=== PATIENT | male | born 1965 | race Caucasian/White ===

== ENCOUNTER 2022-08-01 16:48 | Inpatient (IN) | payer OTHER, MEDICAID ==
[~2022-08-01] VITALS: Ht 182.9 cm; Wt 91.6 kg
[~2022-08-01 16:48] MED LIST: ALLO300T2 PO; CALC667T6 PO; DOCU-144 PO; FER300L PO; FOLI-43 PO; FOLI0.8T42 PO; HYDR-3698 PO; LOSA25TA18 PO; METO-442 PO; NEU300 PO; NOR10 PO
--- NOTE | 2022-08-01 16:48 | NUR ---
BROUGHT IN BY S[facility] [address] AND PLACED IN BED #8, TRIAGED. REPORT GIVEN TO PRIMO
[2022-08-01 16:50] VITALS: BP_SYST 146
--- NOTE | 2022-08-01 17:00 | NUR ---
Pt bib ambulance from home. CC chest pain. Pt notes SOB denies cough. difficulty breathing on oxygen 2 liters Nasal canula. PT below the knee bilateral amputation. Hx of diabetes, aaox4 denies headache, denies NV.
--- NOTE | 2022-08-01 17:15 | NUR ---
ER at bedside examining patient.
[2022-08-01] MEDS ORDERED: LIP40 PO (17:39)
[2022-08-01] MEDS ORDERED: APIX5TAB4 PO (17:39)
[2022-08-01] MEDS ORDERED: FURO-149 PO (17:39)
[2022-08-01] MEDS ORDERED: ASPIRIN 325 MG TABLET PO ONE (17:45)
[2022-08-01] MEDS ORDERED: NITROGLYCERIN 1 INCH (GM) OINT. TP ONE (17:45)
[2022-08-01 18:08] LABS: BASOPHILS # (AUTO) 0.1 K/uL (0.0-0.2); BASOPHILS % (AUTO) 1.5 % (0.0-2.0); EOSINOPHILS # (AUTO) 0.2 K/uL (0.0-0.4); HEMATOCRIT 22.8 % (36-54); HEMOGLOBIN 7.4 g/dL (14.0-18.0); LYMPHOCYTES # (AUTO) 0.5 K/uL (1.0-5.5); LYMPHOCYTES % (AUTO) 5.3 % (20.5-51.5); MEAN CORPUSCULAR HEMOGLOBIN 26 pg (27-31); MEAN CORPUSCULAR HGB CONC 33 % (32-36); MEAN CORPUSCULAR VOLUME 80 fL (79.0-98.0); MONOCYTES # (AUTO) 0.6 K/uL (0.0-1.0); MONOCYTES % (AUTO) 6.3 % (1.7-9.3); NEUTROPHILS # (AUTO) 8.7 K/uL (1.8-7.7); NEUTROPHILS % (AUTO) 84.9 % (40.0-70.0); PLATELET COUNT (AUTO) 236 K/uL (130-430); RED BLOOD CELL COUNT(AUTO) 2.83 MIL/uL (4.2-6.2); RED CELL DISTRIBUTION WIDTH 18.1 % (9.0-15.0); WHITE BLOOD COUNT (AUTO) 10.3 K/uL (4.8-10.8)
[2022-08-01] MEDS ORDERED: VANCOMYCIN HCL 1,000 MG in NS 250 ML IV ONE (19:00)
[2022-08-01] MEDS ORDERED: AZITHROMYCIN 500 MG in NS 250 ML IV ONE (19:00)
--- NOTE | 2022-08-01 19:45 | NUR ---
Patient resting comfortably in bed with side rails raised. Patient A/Ox4, VSS, resp even and unlabored. NAD Noted at this time.
--- NOTE | 2022-08-01 19:45 | NUR ---
Received report from MIRNA Flowers; assuming care of patient at this time.
--- NOTE | 2022-08-01 19:50 | NUR ---
# 20 gauge angiocath placed to right AC. Use of asceptic technique. Opsite placed over site. Blood return noted. Flushed with 10 cc of normal saline. No evidence of infiltration noted. Patient tolerated well.
[2022-08-01] MEDS ORDERED: VANCOMYCIN HCL 1000 MG/VIAL IV ONE (20:22)
[2022-08-01] MEDS ORDERED: AZITHROMYCIN 500 MG/VIAL (ZITHROMAX) IV ONE (20:23)
--- NOTE | 2022-08-01 21:35 | NUR ---
COVID 19 ANTIGEN SWAB SENT TO LAB.
[2022-08-01 21:56] LABS: UREA NITROGEN, BLOOD 66 mg/dL (8-21)
[2022-08-01 22:03] LABS: GFR AFRICAN AMERICAN 9 mL/min (>90)
--- NOTE | 2022-08-01 22:08 | NUR ---
Critical lab received from lab by MANDO Woo. Received cribital lab value from MANDO Woo for Troponin 3148. ER MD Lan notified; no new orders given. Patient is pending admission to floor at this time.
[2022-08-01 23:09] LABS: ANION GAP 16 (5-15); CHLORIDE 101 mmol/L (98-107); POTASSIUM 5.1 mmol/L (3.5-5.1)
[2022-08-01 23:10] LABS: ALANINE AMINOTRANSFERASE 46 U/L (12-78); ASPARTATE AMINOTRANSFERASE 24 U/L (10-37); CALCIUM 8.7 mg/dL (8.4-11.0); GLUCOSE 123 mg/dL (70-99); TOTAL BILIRUBIN 0.3 mg/dL (0.0-1.0)
[2022-08-01 23:11] LABS: ALBUMIN 2.8 g/dL (3.4-4.8)
[2022-08-01] MEDS ORDERED: ONDANSETRON HCL 4 MG/2 ML VIAL IVP PRN (23:15)
[2022-08-01] MEDS ORDERED: ACETAMINOPHEN 325 MG TABLET PO PRN (23:15)
--- NOTE | 2022-08-01 23:15 | NUR ---
Admit bed requested Patient will be admitted to care of Dr. MA. Admitted to TELE unit. Diagnosis RESPIRATORY FAILURE Inpatient (Yes or No) YES Observation (Yes or No) NO Orientation concerns or request close to nursing station (Yes or No) NO Covid Status NEGATIVE On vent or bipap NO Isolation requirements NO Needs a sitter NO From Home (Yes or if No enter name of facility) YES Requires Dialysis (Yes or No) YES Med Rec Completed (Yes of No) YES
--- NOTE | 2022-08-01 23:55 | NUR ---
Wound swab and culture sent to lab.
--- NOTE | 2022-08-02 | NUR ---
Patient sleeping in bed with side rails raised. Nad noted at this time.
[2022-08-02] MEDS ORDERED: PIPERACILLIN/TAZO 3.375 GM in NS 50 ML IV SCH (01:00)
[2022-08-02] MEDS ORDERED: cefTRIAXone 1 GM in D5W 50 ML IV ONE (01:00)
[2022-08-02] MEDS ORDERED: PIPERACILLIN/TAZOBACTAM 3.375 GM/VIAL (ZOSYN) IV ONE (01:52)
--- NOTE | 2022-08-02 02:00 | NUR ---
Patient resting comfortably in bed with side rails raised. Nad noted at this time.
--- NOTE | 2022-08-02 07:39 | NUR ---
Report given to MANDO Michel who is assuming care of patient at this time.
--- NOTE | 2022-08-02 08:00 | NUR ---
ON DUTY RECEIVED THIS PT. A/OX4, WITH SOB. PT WAS ADMITED TO TELE, WAITING FOR BED. BREAKFAST OFFERED TO PT. PT EATING WELL. PT IS FEELING OF SOB. REQUESTING HD. DR. RAJPUT WAS CALLED BY [facility] FOR ORDER OF HD TODAY.
--- NOTE | 2022-08-02 08:05 | NUR ---
DR. ALSTON, COVERING DR. RAJPUT, CALLED BACK. INFO UNDATED TO HIM. DR. ALSTON WILL ORDER HD AND PUT INTO COMPUTER.
--- NOTE | 2022-08-02 08:25 | NUR ---
food tray provided to patient with dietary restriction in place per order
[2022-08-02] MEDS: HYDROcodone/ACETAMIN 5-325 MG TAB (NORCO/ VICODIN) PO PRN ×2 (08:31→21:09)
--- NOTE | 2022-08-02 08:33 | NUR ---
CO PAIN COMES BACK FOR CHEST. NORCO 5/325MG GIVEN PO.
--- NOTE | 2022-08-02 09:21 | NUR ---
PT GOT ROOM IN TELE 130TA. PT WAS SENT TO TELE WITH EMT LG. REPORT ENDORSED BEDSIDE TO ROBER GILMORE.
[2022-08-02 09:30] VITALS: BP_SYST 146
--- NOTE | 2022-08-02 09:35 | NUR ---
AT BEDSIDE TO ASSESS PT. RECEIVED PT FROM JHONNY GILMORE. ASSUMED CARE. PT AA0X4. RESP SHALLOW, LUNG SOUNDS DIMINISHED. ON N/C AT 4LPM. O2 SAT 99%. SOB NOTED. TELEMONITOR PLACED PT HR 115, STATES PT IN INTERMITTENT AFIB. IV CATH TO LAC FLUSHED AND PATENT. PT ABDOMEN DISTENDED, NONTENDER. PT ANURIC. DENIES PAIN. DR. HERRING STATES PT'S ELIQUIS WILL BE HELD.
--- NOTE | 2022-08-02 09:36 | NUR ---
CONSULTATION PAGED/CALLED Reason for Consultation: [] INFECTED WOUND Person Who was Notified: [] KURT Consulting Physician: [] DR GALLEGO Insight Director Specialty: [] ID Ordering Physician: [] DR TOMPKINS
--- NOTE | 2022-08-02 09:37 | NUR ---
CONSULTATION PAGED/CALLED Reason for Consultation: [] ESRD, HD MGMT Person Who was Notified: [] ERIC Consulting Physician: [] DR RAJPUT Data Governance Consultant Specialty: [] NEPHRO Ordering Physician: [] DR TOMPKINS
--- NOTE | 2022-08-02 09:40 | NUR ---
NOTES: Dr. Sherman here and informed about the consult and said he saw the pt. already.
--- NOTE | 2022-08-02 09:42 | NUR ---
CONSULTATION PAGED/CALLED Reason for Consultation: [] CHF Person Who was Notified: [] Claude HERRING Consulting Physician: [] DR HERRING Carpet Binder Specialty: [] CARDIO Ordering Physician: [] DR TOMPKINS
--- NOTE | 2022-08-02 09:44 | NUR ---
CONSULTATION PAGED/CALLED Reason for Consultation: [] PLEURAL EFFUSION Person Who was Notified: [] PATRICK Consulting Physician: [] DR Steve AGUILA Examining Officer Specialty: [] PULMO Ordering Physician: [] DR TOMPKINS
--- NOTE | 2022-08-02 10:00 | NUR ---
NOTES: Dr. Jackson called, unable to get hold of primary RN, informed about the consult,will come by later.engine monitor Isabel already called for the remaining consults, nurse Keiko need to call Dr. Carrizales and told her ,MD was just called.
--- NOTE | 2022-08-02 10:06 | NUR ---
DR. HERRING MADE AWARE PT IS DIAPHORETIC, HR 115, RR 28, O2 SAT 98% ON 4L N/C, PT DESATURATES TO 85% WHEN SPEAKING. DR. RAJPUT PAGED A SECOND TIME TO EXPEDITE HEMODIALYSIS ORDER.
--- NOTE | 2022-08-02 10:17 | NUR ---
REPORTED TO DR. RAJPUT PT'S SOB, DIAPHORETIC, C/O C/P. HE STATED ORDER HD STAT. HD ORDER GIVEN TO GABRIELLE, HE STATED HE WILL MAKE HD AWARE.
[2022-08-02 12:03] VITALS: BP_SYST 146
--- NOTE | 2022-08-02 12:20 | NUR ---
PT RECEIVING HEMODIALYSIS. DR. RAJPUT AT BEDSIDE TO ASSESS PT.
[2022-08-02] MEDS: CEFEPIME 2 GM in D5W 100 ML IV SCH (12:41)
[2022-08-02] MEDS: CALCIUM ACETATE 667 MG CAP PO SCH ×2 (12:42→17:53)
[2022-08-02] MEDS: FERROUS SULFATE 325 MG TABLET.DR PO SCH ×2 (12:42→16:55)
[2022-08-02 12:45] VITALS: BP_SYST 111
--- NOTE | 2022-08-02 15:00 | NUR ---
HD COMPLETED 3000L OUT.
--- NOTE | 2022-08-02 15:17 | NUR ---
U/S CHEST COMPLETED. U/S TECH SPOKE TO DR. BARGER WHO STATED PT WILL HAVE THORCENTESIS ON FRIDAY. MANDO MEDINACONTRIBUTION SOLICITOR MADE AWARE.
--- NOTE | 2022-08-02 15:19 | NUR ---
WOUND CARE PREFORMED AND PICTURES TAKEN FOR CHART. RLE SCATTERED SCABS CLEANSED WITH NS, PATTED DRY AND OPTIFOAM PLACED. LLE MEDIAL WOUND CLEANSED WITH NS, PATTED DRY AND OPTIFOAM PLACED. RLE LATERAL WOUND CLEANSED WITH NS, PATTED DRY AND COVERED WITH ALGINATE AND OPTIFOAM.
[2022-08-02 15:40] VITALS: BP_SYST 144
[2022-08-02] MEDS ORDERED: VANCOMYCIN HCL 500 MG in NS 100 ML IV ONE (16:00)
--- NOTE | 2022-08-02 18:37 | NUR ---
CHRISTINA, AND INFLUENZA A&B OBTAINED AND TAKEN TO LAB.
--- NOTE | 2022-08-02 19:14 | NUR ---
ENDORSED ALL CARE TO MANDO RODRIGUEZ. ALL QUESTIONS AND CONCERNS ADDRESSED.
[2022-08-02 20:00] VITALS: BP_SYST 143
--- NOTE | 2022-08-02 20:07 | NUR ---
RECEIVED PATIENT IN BED, A/O X4 , NO DISTRESS NOTED, O2 SAT 98% IN ROOM AIR, LEFT CHEST PERM CATH FOR HD ACCESS, STEPHEN LEG AMPUTATION SITE INFECTION WITH DRESSING ON AND INTACT, NO C/O PAIN AT THIS TIME, CALL LIGHT WITHIN REACH, WILL CONTINUE TO MONITOR.
[2022-08-02] MEDS: GABAPENTIN 300 MG CAPSULE PO SCH (21:08)
[2022-08-02] MEDS: LOSARTAN POTASSIUM 25 MG TABLET PO SCH (21:08)
[2022-08-02] MEDS: ALLOPURINOL 300 MG TABLET (ZYLOPRIM) PO SCH (21:08)
[2022-08-02] MEDS: DOCUSATE SODIUM 100 MG CAPSULE PO SCH (21:09)
[2022-08-03 03:31] VITALS: BP_SYST 110
--- NOTE | 2022-08-03 04:33 | NUR ---
SLEEPING AT THIS TIME, NO DISTRESS NOTED.
--- NOTE | 2022-08-03 06:13 | NUR ---
C/O BACK PAIN 04/28, NORCO 1 TAB PO GIVEN ORDERED.
--- NOTE | 2022-08-03 07:08 | NUR ---
receive the patient form the nighty rn in a stable condition with admitting diagnosis of pneumonia pleural effusion ESRD . no sign and symptoms of respiratory distress . no complain of pain . will continue to monitor .
[2022-08-03 08:00] VITALS: BP_SYST 104
--- NOTE | 2022-08-03 08:10 | NUR ---
the hyperbaric technician was not able to get some blood sample for laboratory today , will endorse to next shift
[2022-08-03] MEDS: DOCUSATE SODIUM 100 MG CAPSULE PO SCH ×2 (09:01→20:24)
[2022-08-03] MEDS: CALCIUM ACETATE 667 MG CAP PO SCH ×3 (09:01→18:04)
[2022-08-03] MEDS: LOSARTAN POTASSIUM 25 MG TABLET PO SCH ×2 (09:02→20:24)
[2022-08-03] MEDS: FOLIC ACID 1 MG TABLET PO SCH (09:02)
[2022-08-03] MEDS: METOPROLOL TARTRATE 50 MG TABLET PO SCH (09:02)
[2022-08-03] MEDS: FERROUS SULFATE 325 MG TABLET.DR PO SCH ×3 (09:02→18:04)
[2022-08-03] MEDS: amLODIPine BESYLATE 10 MG TABLET PO SCH (09:03)
[2022-08-03] MEDS: ATORVASTATIN 20 MG TABLET PO SCH (09:03)
[2022-08-03] MEDS: NEPHROVITE, (FOLIC ACID/VITAMIN B COMP W-C 1 TAB) PO SCH (09:03)
[2022-08-03] MEDS: CEFEPIME 2 GM in D5W 100 ML IV SCH (12:10)
--- NOTE | 2022-08-03 13:44 | NUR ---
patient requested for a change of linen for comfort .
[2022-08-03 13:48] VITALS: BP_SYST 95
--- NOTE | 2022-08-03 15:39 | NUR ---
repeat mrsa sample was done . upon the request of the laboratory
[2022-08-03 16:00] VITALS: BP_SYST 92
--- NOTE | 2022-08-03 16:45 | NUR ---
jena complained of stomach heart burn d o
--- NOTE | 2022-08-03 16:45 | NUR ---
the rn called md landaverde for orders for stomach heart burn . still awaiting for a return call
--- NOTE | 2022-08-03 17:12 | NUR ---
the next available guest services lead was also not able get some blood specimen for the laboratory
--- NOTE | 2022-08-03 18:16 | NUR ---
will endorse to shift foreman rn for continuity of care
[2022-08-03 20:21] VITALS: BP_SYST 116
[2022-08-03] MEDS: GABAPENTIN 300 MG CAPSULE PO SCH (20:23)
[2022-08-03] MEDS: HYDROcodone/ACETAMIN 5-325 MG TAB (NORCO/ VICODIN) PO PRN (20:24)
[2022-08-03] MEDS: ALLOPURINOL 300 MG TABLET (ZYLOPRIM) PO SCH (20:25)
[2022-08-04 00:48] VITALS: BP_SYST 105
[2022-08-04 07:00] VITALS: BP_SYST 112
--- NOTE | 2022-08-04 07:00 | NUR ---
receive the patient from the professor of mechanical engineering rn in a stable condition with admitting diagnosis of pneumonia . axo4 . no sign and symptoms of respiratory distress . no complain of pain at this time . will continue to monitor
[2022-08-04] MEDS: CALCIUM ACETATE 667 MG CAP PO SCH ×3 (08:34→17:18)
[2022-08-04] MEDS: DOCUSATE SODIUM 100 MG CAPSULE PO SCH ×2 (08:35→21:15)
[2022-08-04] MEDS: FERROUS SULFATE 325 MG TABLET.DR PO SCH ×3 (08:35→17:18)
[2022-08-04] MEDS: LOSARTAN POTASSIUM 25 MG TABLET PO SCH ×2 (08:35→21:09)
[2022-08-04] MEDS: FOLIC ACID 1 MG TABLET PO SCH (08:36)
[2022-08-04] MEDS: ATORVASTATIN 20 MG TABLET PO SCH (08:36)
[2022-08-04] MEDS: METOPROLOL TARTRATE 50 MG TABLET PO SCH (08:37)
[2022-08-04] MEDS: NEPHROVITE, (FOLIC ACID/VITAMIN B COMP W-C 1 TAB) PO SCH (08:37)
[2022-08-04] MEDS: amLODIPine BESYLATE 10 MG TABLET PO SCH (08:40)
[2022-08-04] MEDS: HYDROcodone/ACETAMIN 5-325 MG TAB (NORCO/ VICODIN) PO PRN ×2 (09:16→21:08)
--- NOTE | 2022-08-04 10:29 | NUR ---
md akhil pride also order wound consult for left stump of the patient . the rn also regulargy change foam dressing of the patient
[2022-08-04] MEDS: HEPARIN SODIUM,PORCINE 5,000 UNITS/ML VIAL SUBCUT SCH ×2 (13:45→21:15)
--- NOTE | 2022-08-04 14:24 | NUR ---
radiology dept called to obtain consent for thoracentesis and chest xray after the procedure .
--- NOTE | 2022-08-04 15:15 | NUR ---
acquired consent for thoracentesis from the patient tomorrow
--- NOTE | 2022-08-04 16:53 | NUR ---
patient started on hemodialysis . bp was low . albumin was infuse . lab were able to draw blood . pt will have hd tomorrow due for discharge.
[2022-08-04] MEDS ORDERED: ALBUMIN HUMAN 25% 200 ML IV ONE ×2 (17:45)
[2022-08-04 18:06] LABS: BASOPHILS # (AUTO) 0.1 K/uL (0.0-0.2); BASOPHILS % (AUTO) 1.1 % (0.0-2.0); EOSINOPHILS # (AUTO) 0.3 K/uL (0.0-0.4); EOSINOPHILS % (AUTO) 2.2 % (0.0-4.0); HEMATOCRIT 22.3 % (36-54); LYMPHOCYTES # (AUTO) 0.6 K/uL (1.0-5.5); LYMPHOCYTES % (AUTO) 4.7 % (20.5-51.5); MEAN CORPUSCULAR HEMOGLOBIN 26 pg (27-31); MEAN CORPUSCULAR HGB CONC 32 % (32-36); MEAN CORPUSCULAR VOLUME 81 fL (79.0-98.0); MONOCYTES # (AUTO) 0.7 K/uL (0.0-1.0); MONOCYTES % (AUTO) 5.7 % (1.7-9.3); NEUTROPHILS # (AUTO) 10.2 K/uL (1.8-7.7); NEUTROPHILS % (AUTO) 86.3 % (40.0-70.0); PLATELET COUNT (AUTO) 281 K/uL (130-430); RED BLOOD CELL COUNT(AUTO) 2.76 MIL/uL (4.2-6.2); RED CELL DISTRIBUTION WIDTH 17.7 % (9.0-15.0); WHITE BLOOD COUNT (AUTO) 11.8 K/uL (4.8-10.8)
[2022-08-04 18:14] LABS: INR 1.1 (0.80-1.20); PROTHROMBIN TIME 11.1 SECS (9.5-12.5)
[2022-08-04 18:24] LABS: ALBUMIN 2.6 g/dL (3.4-4.8); CALCIUM 8.3 mg/dL (8.4-11.0); POTASSIUM 5.2 mmol/L (3.5-5.1); TOTAL BILIRUBIN 0.3 mg/dL (0.0-1.0); VANCOMYCIN,RANDOM 11.4 ug/mL
[2022-08-04 18:28] LABS: CREATININE 7.83 mg/dL (0.55-1.30)
[2022-08-04] MEDS ORDERED: HEPARIN SODIUM,PORCINE 5,000 UNITS/ML VIAL SUBCUT ONE (18:30)
--- NOTE | 2022-08-04 18:59 | NUR ---
will endorse to night rn for continuity of care
[2022-08-04 19:52] VITALS: BP_SYST 105
--- NOTE | 2022-08-04 20:10 | NUR ---
received patient in bed with o2 2 liter via n/c, o2 sat 95% , patient is a/o x4 , no distress noted, patient is on dialysis with access at left chest permacath, both leg amputation with stump infection , dressing intact, no c/o pain at this time, call light within reach.
[2022-08-04] MEDS: GABAPENTIN 300 MG CAPSULE PO SCH (21:08)
[2022-08-04] MEDS: ALLOPURINOL 300 MG TABLET (ZYLOPRIM) PO SCH (21:08)
[2022-08-05] VITALS: BP_SYST 118; BP_SYST 129
--- NOTE | 2022-08-05 | NUR ---
hgb 7 , 1 unit of pack cell ordered , consent signed by patient, type and cross drawed by lab, WILL transfusion once the PRBC available.
[2022-08-05] MEDS: HEPARIN SODIUM,PORCINE 5,000 UNITS/ML VIAL SUBCUT SCH ×2 (06:29→14:58)
--- NOTE | 2022-08-05 07:10 | NUR ---
receive the patient from the night custodian rn for thoracentesis and hemodialysis today with one unit of PRBC aox 4 . no complain of pain at this time . no sign and symptoms of respiratory distress . will continue to monitor
[2022-08-05 07:21] LABS: EOSINOPHILS # (AUTO) 0.3 K/uL (0.0-0.4); EOSINOPHILS % (AUTO) 2.8 % (0.0-4.0); HEMATOCRIT 22.7 % (36-54); HEMOGLOBIN 7.2 g/dL (14.0-18.0); LYMPHOCYTES # (AUTO) 0.6 K/uL (1.0-5.5); LYMPHOCYTES % (AUTO) 6.1 % (20.5-51.5); MEAN CORPUSCULAR HEMOGLOBIN 26 pg (27-31); MEAN CORPUSCULAR HGB CONC 32 % (32-36); MEAN CORPUSCULAR VOLUME 82 fL (79.0-98.0); MONOCYTES # (AUTO) 0.9 K/uL (0.0-1.0); MONOCYTES % (AUTO) 8.8 % (1.7-9.3); PLATELET COUNT (AUTO) 255 K/uL (130-430); RED BLOOD CELL COUNT(AUTO) 2.77 MIL/uL (4.2-6.2); RED CELL DISTRIBUTION WIDTH 17.6 % (9.0-15.0); WHITE BLOOD COUNT (AUTO) 9.8 K/uL (4.8-10.8)
[2022-08-05 08:00] VITALS: BP_SYST 108
[2022-08-05 08:02] LABS: ALBUMIN 2.8 g/dL (3.4-4.8); CALCIUM 8.4 mg/dL (8.4-11.0); TOTAL BILIRUBIN 0.3 mg/dL (0.0-1.0)
[2022-08-05 08:14] LABS: BASOPHILS % (AUTO) 0.7 % (0.0-2.0); NEUTROPHILS % (AUTO) 81.6 % (40.0-70.0)
[2022-08-05 08:15] LABS: BASOPHILS # (AUTO) 0.1 K/uL (0.0-0.2)
--- NOTE | 2022-08-05 08:30 | NUR ---
the md and chief radiology did the thoracentesis use lidocaine on the operative site . at 0930 ended the procedure . took out 2 liters of fluid . tolerated the procedure . no adverse reaction on the procedure
[2022-08-05] MEDS: ATORVASTATIN 20 MG TABLET PO SCH (08:40)
[2022-08-05] MEDS: NEPHROVITE, (FOLIC ACID/VITAMIN B COMP W-C 1 TAB) PO SCH (08:40)
[2022-08-05] MEDS: CALCIUM ACETATE 667 MG CAP PO SCH ×3 (08:40→16:33)
[2022-08-05] MEDS: FOLIC ACID 1 MG TABLET PO SCH (08:40)
[2022-08-05] MEDS: FERROUS SULFATE 325 MG TABLET.DR PO SCH ×3 (08:40→16:33)
[2022-08-05] MEDS: HYDROcodone/ACETAMIN 5-325 MG TAB (NORCO/ VICODIN) PO PRN (08:41)
[2022-08-05] MEDS: DOCUSATE SODIUM 100 MG CAPSULE PO SCH (08:43)
[2022-08-05 09:06] LABS: CREATININE 8.29 mg/dL (0.55-1.30); POTASSIUM 5.9 mmol/L (3.5-5.1)
[2022-08-05] MEDS ORDERED: CEFEPIME 2 GM in D5W 100 ML IV SCH (11:00)
--- NOTE | 2022-08-05 11:00 | NUR ---
chest xray was done post thoracentesis . tolerated the procedure
--- NOTE | 2022-08-05 11:14 | NUR ---
informed md corral k of 5.9 creatinine . patient is scheduled for hemodialysis . no new order
[2022-08-05 11:38] VITALS: BP_SYST 116
[2022-08-05] MEDS ORDERED: VANCOMYCIN HCL 1,000 MG in NS 250 ML IV ONE (12:00)
--- NOTE | 2022-08-05 13:30 | NUR ---
patient started on hemodialysis , one unit PRBC was given during the procedure .
--- NOTE | 2022-08-05 14:00 | NUR ---
WOUND EVALUATION: Wound Consult received from Dr. Stubbs. Thank you, Dr. Stubbs, for the consult. Patient received in a Migdalia Bed with an IsoFlex FAY mattress, awake, alert and oriented. Patient is able to turn independently. Tyrell Score is an 18. 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 Recent Labs: WBC 9.8, RBC 2.77, hemoglobin 7.2, hematocrit 22.7, ESR 77, potassium 5.9, BUN 69, creatinine 8.29, GFR 7, glucose 151, alkaline phosphatase 44, albumin 2.8, D-dimer 3800. Microbiology: MRSA Screen results in progress. Blood culture results x 2 in progress. Intrinsic factors that delay wound healing: Diabetes Mellitus, Peripheral Vascular Disease, Peripheral Arterial Disease, Dilated Cardiomyopathy, CHF, Systolic Heart Failure, bilateral knee amputations, recent pleural effusions, ESRD, on hemodialysis, left knee area amputation site infection, Hypoalbuminemia. Extrinsic factors that delay wound healing: Decreased mobility. Wound Assessment: 1. Left Lateral Posterior Residual Limb: Acute on chronic wound over old AKA incision, present on admission. Wound bed has 90% yellow slough, 10% dull red tissue. No odor, scant yellow drainage. Undermining present from 7-8 o'clock measuring 0.6 cm. Wound measures 2.2 cm x 4.0 cm x 0.4. Recommend: Cleanse wound with normal saline. Apply moisture barrier cream to isabel-wound. Apply Hydrogel to wound bed. Cover with foam dressing. Perform wound care daily, and as needed for dressing soiling or dislodgement. 2. Left Medial Posterior Residual Limb: Chronic wound, present on admission. Wound bed has 100% yellow eschar. No odor, no drainage. Dry, stable. Wound measures 1.3 cm x 0.4 cm. Recommend: [place] site with Betadine. Allow Betadine to air dry. Cover site with foam dressing. Perform wound care daily, and as needed for dressing soiling or dislodgment. 3. Right Anterior Residual Limb: Chronic wound, present on admission. 100% black eschar. No odor, no drainage. Periwound intact. Wound measures 1.0 cm x 0.5 cm. 4. Right Lateral Anterior Residual Limb: Chronic wound, present on admission. 100% black eschar. No odor, no drainage. Periwound intact. Wound measures 0.7 cm x 0.9 cm. Recommend: [place] sites with Betadine. Allow Betadine to air dry. Cover sites with foam dressings. Perform site care daily, and as needed for dressing soiling or dislodgment. Also recommend: Encourage and assist patient as needed with repositioning every 2 hours with pillow support and off-load pressure areas with pillows for pressure re-distribution. Offload, elevate and float bilateral heels with pillows. Perform skin care and monitor skin integrity Q shift.
[2022-08-05] MEDS: amLODIPine BESYLATE 10 MG TABLET PO SCH (16:29)
[2022-08-05] MEDS: LOSARTAN POTASSIUM 25 MG TABLET PO SCH (16:30)
[2022-08-05] MEDS: METOPROLOL TARTRATE 50 MG TABLET PO SCH (16:30)
--- NOTE | 2022-08-05 16:34 | NUR ---
gave all morning blood pressure medications after the hemodialysis
[2022-08-05 17:07] VITALS: BP_SYST 147
--- NOTE | 2022-08-05 18:06 | NUR ---
the patient was coal picker by the and daughter leave against medical advice after the thoracentesis 2L out this am .hemodialysis 1.2 L out . vitals bp 132/58 hr98 temp 96.5 signed AMA . MD landaverde was informed about the incident
== END 2022-08-05 17:45 | disposition left against medical advice (07) | DRG 564 ==
LOC: SED 16:48 → STU 23:05
PROVIDERS: ADMIT Family Medicine; ATTEND Family Medicine
PROC: 5A1D70Z Performance of Urinary Filtration, Intermittent, Less than 6 Hours Per Day (ICD-10-PCS; 2022-08-02)
PROC: 5A1D70Z Performance of Urinary Filtration, Intermittent, Less than 6 Hours Per Day (ICD-10-PCS; 2022-08-03)
PROC: 5A1D70Z Performance of Urinary Filtration, Intermittent, Less than 6 Hours Per Day (ICD-10-PCS; 2022-08-04)
PROC: 0W993ZZ Drainage of Right Pleural Cavity, Percutaneous Approach (ICD-10-PCS; principal; 2022-08-05)
PROC: 30233N1 Transfusion of Nonautologous Red Blood Cells into Peripheral Vein, Percutaneous Approach (ICD-10-PCS; 2022-08-05)
DX: T87.44 Infection of amputation stump, left lower extremity (principal); I50.23 Acute on chronic systolic (congestive) heart failure; J96.01 Acute respiratory failure with hypoxia; J18.9 Pneumonia, unspecified organism; N18.6 End stage renal disease; I13.2 Hypertensive heart and chronic kidney disease with heart failure and with stage 5 chronic kidney disease, or end stage renal disease; I48.20 Chronic atrial fibrillation, unspecified; L03.116 Cellulitis of left lower limb; I42.0 Dilated cardiomyopathy; E87.70 Fluid overload, unspecified; Z91.041 Radiographic dye allergy status; G89.4 Chronic pain syndrome; Y83.5 Amputation of limb(s) as the cause of abnormal reaction of the patient, or of later complication, without mention of misadventure at the time of the procedure; E11.51 Type 2 diabetes mellitus with diabetic peripheral angiopathy without gangrene; E78.00 Pure hypercholesterolemia, unspecified; E66.01 Morbid (severe) obesity due to excess calories; E11.22 Type 2 diabetes mellitus with diabetic chronic kidney disease; D64.9 Anemia, unspecified; Z20.822 Contact with and (suspected) exposure to COVID-19; Y92.89 Other specified places as the place of occurrence of the external cause; Z99.2 Dependence on renal dialysis; Z89.512 Acquired absence of left leg below knee; Z89.511 Acquired absence of right leg below knee; Z87.891 Personal history of nicotine dependence; Z79.01 Long term (current) use of anticoagulants; Z79.899 Other long term (current) drug therapy; Z68.27 Body mass index [BMI] 27.0-27.9, adult
CPT/HCPCS: 32555; 36415; 71045; 76604; 80053; 80202; 82550; 83605; 83880; 84484; 85025; 85379; 85610-TC; 85651-TC; 85730-TC; 86140; 86738; 86886; 86900; 86901; 86920; 87040; 87081; 90935; 90937; 93005; 96365; 96366; 96367; 99285; G0378; J0456; J0692; J1644; J2543; J3370; J7050; J7060; P9021

== ENCOUNTER 2022-09-16 09:54 | Inpatient (IN) | payer OTHER, MEDICAID ==
[~2022-09-16] VITALS: Ht 188 cm; Wt 87.1 kg
[~2022-09-16 09:54] MED LIST changes: +APIX5TAB4 PO; +FURO-149 PO; +LIP40 PO
[2022-09-16 10:00] VITALS: BP_SYST 136
[2022-09-16 15:21] LABS: EOSINOPHILS # (AUTO) 0.2 K/uL (0.0-0.4); HEMOGLOBIN 7.7 g/dL (14.0-18.0); NEUTROPHILS # (AUTO) 7.6 K/uL (1.8-7.7)
[2022-09-16 15:33] LABS: BASOPHILS # (AUTO) 0.1 K/uL (0.0-0.2); BASOPHILS % (AUTO) 1.2 % (0.0-2.0); EOSINOPHILS % (AUTO) 1.7 % (0.0-4.0); HEMATOCRIT 24.4 % (36-54); LYMPHOCYTES # (AUTO) 0.4 K/uL (1.0-5.5); LYMPHOCYTES % (AUTO) 4.8 % (20.5-51.5); MEAN CORPUSCULAR HEMOGLOBIN 24 pg (27-31); MEAN CORPUSCULAR HGB CONC 32 % (32-36); MEAN CORPUSCULAR VOLUME 77 fL (79.0-98.0); MONOCYTES # (AUTO) 0.6 K/uL (0.0-1.0); MONOCYTES % (AUTO) 7.2 % (1.7-9.3); NEUTROPHILS % (AUTO) 85.1 % (40.0-70.0); PLATELET COUNT (AUTO) 307 K/uL (130-430); RED BLOOD CELL COUNT(AUTO) 3.17 MIL/uL (4.2-6.2); RED CELL DISTRIBUTION WIDTH 17.7 % (9.0-15.0); WHITE BLOOD COUNT (AUTO) 8.9 K/uL (4.8-10.8)
[2022-09-16 15:40] LABS: ANION GAP 10 (5-15); CALCIUM 8.7 mg/dL (8.4-11.0); CHLORIDE 102 mmol/L (98-107); GLUCOSE 87 mg/dL (70-99); UREA NITROGEN, BLOOD 70 mg/dL (8-21)
[2022-09-16 15:49] LABS: ALANINE AMINOTRANSFERASE 19 U/L (12-78); ALBUMIN 3.3 g/dL (3.4-4.8); ASPARTATE AMINOTRANSFERASE 15 U/L (10-37); TOTAL BILIRUBIN 0.3 mg/dL (0.0-1.0)
[2022-09-16 16:26] LABS: GFR AFRICAN AMERICAN 7 mL/min (>90)
[2022-09-16 16:30] LABS: CREATININE 9.47 mg/dL (0.55-1.30)
--- NOTE | 2022-09-16 16:34 | NUR ---
COVID SAMPLE OBTIANED AND SENT TO LAB.
[2022-09-16] MEDS ORDERED: SODIUM ZIRCONIUM CYCLOSILICATE 10 GM POWD.PACK PO ONE (16:45)
[2022-09-16] MEDS ORDERED: ALBMDI (16:50)
[2022-09-16] MEDS ORDERED: HYDR-500 PO (16:50)
[2022-09-16] MEDS ORDERED: AURYXIA PO (16:50)
[2022-09-16] MEDS ORDERED: NOR10 PO (16:50)
[2022-09-16] MEDS ORDERED: ALLO300T2 PO (16:50)
[2022-09-16] MEDS ORDERED: FERR-69 PO (16:50)
[2022-09-16] MEDS ORDERED: ICOS1CAP PO (16:50)
[2022-09-16] MEDS ORDERED: METO50TA7 PO (16:50)
--- NOTE | 2022-09-16 17:00 | NUR ---
PT BIB BLS, CC SOB, PT IS BKA, PT STATES DIALYSIS DUE TODAY. PT SATURATION 95% ON 2 LITER. PT IS SINUS TACHY.
--- NOTE | 2022-09-16 17:18 | NUR ---
Admit bed requested Patient will be admitted to care of . Admitted to TELEMETRY unit. Diagnosis RENAL FAILURE Inpatient (Yes or No) YES Observation (Yes or No) NO Orientation concerns or request close to nursing station (Yes or No) NO Covid Status NEGATIVE On vent or bipap NO Isolation requirements NONE Needs a sitter NO From Home (Yes or if No enter name of facility) YES Requires Dialysis (Yes or No) YES Med Rec Completed (Yes of No) YES
--- NOTE | 2022-09-16 17:25 | NUR ---
CRITICAL RESULTS: POTASSIUM 6.1, CREATININE 9.47, TROPONIN 142. NOTIFIED MD.
[2022-09-16] MEDS ORDERED: ONDANSETRON HCL 4 MG/2 ML VIAL IVP PRN (18:00)
[2022-09-16] MEDS ORDERED: POTASSIUM CHLORIDE 20 MEQ TAB.PRT.SR PO PRN (18:00)
[2022-09-16] MEDS ORDERED: MUPIROCIN 2% TOPICAL OINTMENT 22 GM NS PRN (18:00)
[2022-09-16] MEDS ORDERED: DOCUSATE SODIUM 100 MG CAPSULE PO PRN (18:00)
[2022-09-16] MEDS ORDERED: MORPHINE 2 MG/ML INJ. SYRINGE IVP PRN (18:00)
[2022-09-16] MEDS ORDERED: LORazepam 2 MG/ML VIAL IVP PRN (18:00)
[2022-09-16] MEDS ORDERED: MAGNESIUM SULFATE 50 ML IV PRN (18:00)
[2022-09-16] MEDS ORDERED: ALBUTEROL SULFATE 0.083% 2.5 MG/3 ML VIAL.NEB INH PRN (18:00)
[2022-09-16] MEDS ORDERED: ACETAMINOPHEN 325 MG TABLET PO PRN (18:00)
[2022-09-16 18:19] VITALS: BP_SYST 136
--- NOTE | 2022-09-16 19:17 | NUR ---
PT BIB BLS, CC SOB, PT IS BKA, PT STATES DIALYSIS DUE TODAY. PT SATURATION 95% ON 2 LITER. PT IS SINUS TACHY.
--- NOTE | 2022-09-16 19:17 | NUR ---
Note darellleon in EDM - 09/16/22 at 1919 by ASHUTOSHPR PT BIB BLS, CC SOB, PT IS BKA, PT STATES DIALYSIS DUE TODAY. PT SATURATION 95% ON 2 LITER. PT IS SINUS TACHY.
[2022-09-16] MEDS ORDERED: DOCUSATE SODIUM 100 MG CAPSULE PO SCH (21:00)
[2022-09-16] MEDS: AURYXIA 210 MG PO SCH (21:00)
[2022-09-16] MEDS: CALCIUM ACETATE 667 MG CAP PO SCH (21:00)
[2022-09-16] MEDS: GABAPENTIN 300 MG CAPSULE PO SCH (21:00)
[2022-09-16] MEDS: APIXABAN 2.5 MG TABLET PO SCH (21:00)
[2022-09-16] MEDS ORDERED: ALLOPURINOL 300 MG TABLET (ZYLOPRIM) PO SCH (21:00)
--- NOTE | 2022-09-16 21:00 | NUR ---
HEMODIALYSIS CONSENT SIGNED BY THE PT. HD AT BEDSIDE IN PROGRESS ORDERED BY DR. ALSTON, NEPHORLOGIST. VSS. SAFE & HAZARD FREE ENVIRONMENT PROVIDED.
--- NOTE | 2022-09-16 23:29 | NUR ---
HD 3300 OUT. VSS. BRADLEY PERMACATH DRESSED INTACT W/ NO S/S OF BLEEDING. PT TOLERATED HD.
--- NOTE | 2022-09-16 23:35 | NUR ---
# 20 gauge angiocath placed to R AC. Use of asceptic technique. Opsite placed over site. Blood return noted. Flushed with 10 cc of normal saline. No evidence of infiltration noted. Patient tolerated well.
--- NOTE | 2022-09-16 23:45 | NUR ---
Patient will be admitted to care of TELEMETRY. Admitted to TELE unit. Will go to room 109B. Belongings list completed. Complete and up to date summary report printed. SBAR report to be given TO MANDO HOPKINS at bedside with opportunity for questions.
[2022-09-16 23:50] VITALS: BP_SYST 145
--- NOTE | 2022-09-16 23:50 | NUR ---
ADMISSION NOTE Received patient from ER via gurney. Patient admitted with diagnosis of RENAL FAILURE. Patient is awake, alert, oriented X 4. Patient oriented to hospital room, call light, toileting, pain management and safety-teach back done. Patient informed that their room number is 109B. Personal belongings checked and Belongings List documented. Call light within reach.
[2022-09-17] MEDS: ZOLPIDEM TARTRATE 5 MG TABLET PO PRN ×2 (02:56→23:26)
[2022-09-17] MEDS: MORPHINE 2 MG/ML INJ. SYRINGE IVP PRN ×2 (02:59→23:25)
[2022-09-17 08:00] VITALS: BP_SYST 127
--- NOTE | 2022-09-17 08:10 | NUR ---
Received patient alert, awake and oriented. He complains of shortness of breath on exertion. Respiratory therapist called in to give breathing treatments. Restarted on 2 liters nasal cannula, He verbalized feeling relieved 5 minutes into the oxygen. Will continue to monitor.
[2022-09-17] MEDS: CALCIUM ACETATE 667 MG CAP PO SCH ×3 (09:28→23:21)
[2022-09-17] MEDS: FOLIC ACID 1 MG TABLET PO SCH (09:29)
[2022-09-17] MEDS: METOPROLOL SUCCINATE 50 MG TAB.SR.24H (TOPROL XL) PO SCH (09:29)
[2022-09-17] MEDS: FUROSEMIDE 40 MG TABLET PO SCH (09:30)
[2022-09-17] MEDS: APIXABAN 2.5 MG TABLET PO SCH ×2 (09:31→23:23)
[2022-09-17] MEDS: ATORVASTATIN 20 MG TABLET PO SCH (09:57)
[2022-09-17] MEDS: ALLOPURINOL 300 MG TABLET (ZYLOPRIM) PO SCH (09:57)
[2022-09-17] MEDS: amLODIPine BESYLATE 10 MG TABLET PO SCH (09:58)
[2022-09-17] MEDS: AURYXIA 210 MG PO SCH ×3 (10:00→23:26)
[2022-09-17 11:49] LABS: BASOPHILS % (AUTO) 0.2 % (0.0-2.0); EOSINOPHILS # (AUTO) 0.2 K/uL (0.0-0.4); EOSINOPHILS % (AUTO) 2.2 % (0.0-4.0); HEMATOCRIT 23.7 % (36-54); HEMOGLOBIN 7.3 g/dL (14.0-18.0); LYMPHOCYTES # (AUTO) 0.3 K/uL (1.0-5.5); LYMPHOCYTES % (AUTO) 4.7 % (20.5-51.5); MEAN CORPUSCULAR HEMOGLOBIN 24 pg (27-31); MEAN CORPUSCULAR HGB CONC 31 % (32-36); MEAN CORPUSCULAR VOLUME 77 fL (79.0-98.0); MONOCYTES # (AUTO) 0.6 K/uL (0.0-1.0); MONOCYTES % (AUTO) 7.8 % (1.7-9.3); NEUTROPHILS # (AUTO) 6.1 K/uL (1.8-7.7); NEUTROPHILS % (AUTO) 85.1 % (40.0-70.0); PLATELET COUNT (AUTO) 218 K/uL (130-430); RED BLOOD CELL COUNT(AUTO) 3.08 MIL/uL (4.2-6.2); WHITE BLOOD COUNT (AUTO) 7.1 K/uL (4.8-10.8)
[2022-09-17 12:00] VITALS: BP_SYST 124
[2022-09-17 12:03] LABS: CALCIUM 8.4 mg/dL (8.4-11.0)
[2022-09-17 12:36] LABS: CREATININE 7.93 mg/dL (0.55-1.30)
--- NOTE | 2022-09-17 12:38 | NUR ---
creatinine 7.93. trending down Dr Williamson aware.
[2022-09-17] MEDS ORDERED: HEPARIN SODIUM,PORCINE 5,000 UNITS/ML VIAL MC ONE (19:15)
[2022-09-17 20:00] VITALS: BP_SYST 103
[2022-09-17] MEDS: GABAPENTIN 300 MG CAPSULE PO SCH (23:21)
[2022-09-18] MEDS ORDERED: HYDROcodone/ACETAMIN 10-325 MG TAB PO PRN
[2022-09-18 01:00] VITALS: BP_SYST 104
--- NOTE | 2022-09-18 06:35 | NUR ---
Patient received from AM shift nurse Jackson at 1930. Patient at this time was noted to be stable with no s/s of distress and denied pain. Patient had dialysis nurse at beside and was about to start a dialysis session as soon has roommate session was completed. Patient was noted to be on 2L of O2 and to be tolerating it well with O2 ranging between 94 and above, patient is also on telemonitoring. Patient is able to vocalize needs, is anuric, and is continent of bowel. Patient was assessed as per protocol. Patient Dialysis completed at 2320 and 2.5L of fluid was removed. Patient medications were given promptly after dialysis session and patient reported pain at this time at 7/10 other gilmore patient tolerated dialysis well and was noted to have stable V/S at this time. Nurse offered PRN morphine and patient accepted but then refused at beside and requested to be given norco 10 PO because that is what he takes at home. Patient was instructed that there was no current order for norco at this time and that the nurse would have to call Dr. Williamson to obtain the order. Patient also requested his PRN sleep med at this time. Patient was administered PRN sleep aid and patient stated that he would wait for the pain pill. Was able to contact Dr. Williamson at [phone] and received an order for Hydrocodone 10/325 PRN Q4hrs. Patient was noted to be sleeping so Med was not given at this time. Patient received PRN PO med at 0120 as requested and went promptly back to sleep. Patient is currently stable at this time, all current shift needs have been met, safety measures are in place as per protocol and call light is within reach. Will differ further care to AM shift nurse for continuity of care.
[2022-09-18 06:52] LABS: CALCIUM 8.3 mg/dL (8.4-11.0); CREATININE 5.73 mg/dL (0.55-1.30)
[2022-09-18 06:57] LABS: BASOPHILS # (AUTO) 0.1 K/uL (0.0-0.2); BASOPHILS % (AUTO) 1.5 % (0.0-2.0); EOSINOPHILS # (AUTO) 0.2 K/uL (0.0-0.4); EOSINOPHILS % (AUTO) 3.5 % (0.0-4.0); HEMATOCRIT 23.8 % (36-54); HEMOGLOBIN 7.3 g/dL (14.0-18.0); LYMPHOCYTES # (AUTO) 0.6 K/uL (1.0-5.5); LYMPHOCYTES % (AUTO) 8.6 % (20.5-51.5); MEAN CORPUSCULAR HEMOGLOBIN 24 pg (27-31); MEAN CORPUSCULAR HGB CONC 31 % (32-36); MEAN CORPUSCULAR VOLUME 78 fL (79.0-98.0); MONOCYTES # (AUTO) 0.7 K/uL (0.0-1.0); MONOCYTES % (AUTO) 10.6 % (1.7-9.3); NEUTROPHILS # (AUTO) 4.8 K/uL (1.8-7.7); NEUTROPHILS % (AUTO) 75.8 % (40.0-70.0); PLATELET COUNT (AUTO) 132 K/uL (130-430); RED BLOOD CELL COUNT(AUTO) 3.08 MIL/uL (4.2-6.2); RED CELL DISTRIBUTION WIDTH 17.6 % (9.0-15.0); WHITE BLOOD COUNT (AUTO) 6.4 K/uL (4.8-10.8)
--- NOTE | 2022-09-18 08:00 | NUR ---
Opening Note Pt. is currently sleeping comfortably in bed, patient was sleeping on room air, refused cpap machine, 02 saturation was 90% on room air, applied O2 2L NC and 02 went up to 95%. Fall precautions in place.
[2022-09-18] MEDS: amLODIPine BESYLATE 10 MG TABLET PO SCH (09:00)
[2022-09-18] MEDS: METOPROLOL SUCCINATE 50 MG TAB.SR.24H (TOPROL XL) PO SCH (09:00)
[2022-09-18] MEDS: FUROSEMIDE 40 MG TABLET PO SCH (09:00)
[2022-09-18 09:13] VITALS: BP_SYST 90
[2022-09-18] MEDS: CALCIUM ACETATE 667 MG CAP PO SCH ×3 (09:32→20:57)
[2022-09-18] MEDS: FOLIC ACID 1 MG TABLET PO SCH (09:32)
[2022-09-18] MEDS: ATORVASTATIN 20 MG TABLET PO SCH (09:32)
[2022-09-18] MEDS: APIXABAN 2.5 MG TABLET PO SCH ×2 (09:34→20:57)
--- NOTE | 2022-09-18 11:08 | NUR ---
Dialysis on hold for today Reached out to Lori frame runner and notified her that Dr. Williamson had entered an order for dialysis today, Lori called Dr. Williamson for clarification since pt. was dialyzed yesterday per Lori, Lori stated that Dr. Williamson informed her to hold dialysis today. SBP was less than 100. Blood pressure meds were held this morning due to SBP less than 100, see flowsheet for full vital signs. Pt. is on 2L NC no signs of respiratory distress, will continue to monitor.
[2022-09-18] MEDS: ALLOPURINOL 300 MG TABLET (ZYLOPRIM) PO SCH (11:19)
[2022-09-18] MEDS: AURYXIA 210 MG PO SCH ×3 (11:20→20:59)
--- NOTE | 2022-09-18 12:00 | NUR ---
Rn and charge nurse Jennifer spoke to patient regarding suicidal ideations, pt. stated that he did not have any plan to hurt himself and did not want to hurt himself, psych consult placed per MD.
[2022-09-18] MEDS: PIPERACILLIN/TAZO 2.25G/DEX-IS 50 ML IV SCH ×2 (13:17→18:44)
[2022-09-18 15:30] VITALS: BP_SYST 94
--- NOTE | 2022-09-18 15:39 | NUR ---
CONSULT PSYCH SUICIDAL ANGELIKA DE LA CRUZ [phone] S/W [facility]
--- NOTE | 2022-09-18 16:30 | NUR ---
Performed wound care on patient's left bka. Cleansed with wound cleanser, applied hydrogel and wrapped with gauze. No drainage noted, wound bed is pink with 25% covered in johnson colored slough, no odor noted.
[2022-09-18 19:00] VITALS: BP_SYST 107
--- NOTE | 2022-09-18 19:00 | NUR ---
RECEIVED PT IN BED.AOX4.ON 2L NC.SR ON MONITOR.NOT IN RESPIRATORY DISTRESS NOTED.NO COMPLAINT OF PAIN NOTED.L UPPER CHEST PERMACATH NOTED FOR HD ACCESS.IVL R UPPER ARM G22, PATENT AND INTACT. BILATERAL BKA NOTED.BED IN LOWEST POSITION.BEDSIDE TABLE AND CALL LIGHT ARE WITHIN REACH.
--- NOTE | 2022-09-18 19:21 | NUR ---
Dietitian Recommendations * Continue Renal diet * Consider Consistent CHO diet restriction if elevated BG persists Refer to nutrition assessment for details, thanks CC, MPH, RDN
--- NOTE | 2022-09-18 20:00 | NUR ---
ASSISTED PT TO THE BEDPAN.CHANGED AND REPOSITIONED PT.
[2022-09-18] MEDS: GABAPENTIN 300 MG CAPSULE PO SCH (20:56)
--- NOTE | 2022-09-18 21:00 | NUR ---
SCHEDULED MEDICATIONS GIVEN ORDERED.
--- NOTE | 2022-09-19 | NUR ---
PT IS ASLEEP.PT HAS EVEN AND UNLABORED BREATHING NOTED.
[2022-09-19 00:20] VITALS: BP_SYST 110
[2022-09-19] MEDS: PIPERACILLIN/TAZO 2.25G/DEX-IS 50 ML IV SCH ×3 (00:42→12:00)
--- NOTE | 2022-09-19 05:30 | NUR ---
KEPT PT CLEAN AND DRY.CHANGED AND REPOSITIONED PT.
[2022-09-19 06:56] LABS: CALCIUM 8.3 mg/dL (8.4-11.0)
[2022-09-19 07:07] LABS: CREATININE 7.56 mg/dL (0.55-1.30)
--- NOTE | 2022-09-19 07:15 | NUR ---
ENDORSED TO MANDO RASHID FOR CONTINUITY OF CARE.PT IS NOT IN RESPIRATORY DISTRESS NOTED.
[2022-09-19 07:22] LABS: BASOPHILS # (AUTO) 0.1 K/uL (0.0-0.2); BASOPHILS % (AUTO) 1.4 % (0.0-2.0); EOSINOPHILS # (AUTO) 0.2 K/uL (0.0-0.4); EOSINOPHILS % (AUTO) 3.1 % (0.0-4.0); HEMATOCRIT 23.9 % (36-54); HEMOGLOBIN 7.5 g/dL (14.0-18.0); LYMPHOCYTES # (AUTO) 0.7 K/uL (1.0-5.5); LYMPHOCYTES % (AUTO) 9.8 % (20.5-51.5); MEAN CORPUSCULAR HEMOGLOBIN 24 pg (27-31); MEAN CORPUSCULAR HGB CONC 32 % (32-36); MEAN CORPUSCULAR VOLUME 77 fL (79.0-98.0); MONOCYTES # (AUTO) 0.8 K/uL (0.0-1.0); MONOCYTES % (AUTO) 11.1 % (1.7-9.3); NEUTROPHILS # (AUTO) 5.2 K/uL (1.8-7.7); NEUTROPHILS % (AUTO) 74.6 % (40.0-70.0); PLATELET COUNT (AUTO) 173 K/uL (130-430); RED BLOOD CELL COUNT(AUTO) 3.11 MIL/uL (4.2-6.2); RED CELL DISTRIBUTION WIDTH 17.3 % (9.0-15.0)
--- NOTE | 2022-09-19 08:00 | NUR ---
Opening Note Pt. is AAOx4, no reports of pain, assisted patient with set up for breakfast, and pt. is now eating comfortably, no signs of acute distress.
[2022-09-19 08:22] VITALS: BP_SYST 149
[2022-09-19] MEDS ORDERED: LEVO250T73 PO (08:51)
[2022-09-19] MEDS: CALCIUM ACETATE 667 MG CAP PO SCH (09:00)
[2022-09-19] MEDS: FUROSEMIDE 40 MG TABLET PO SCH (09:00)
[2022-09-19] MEDS: amLODIPine BESYLATE 10 MG TABLET PO SCH (09:00)
[2022-09-19] MEDS: METOPROLOL SUCCINATE 50 MG TAB.SR.24H (TOPROL XL) PO SCH (09:00)
[2022-09-19] MEDS: ATORVASTATIN 20 MG TABLET PO SCH (09:40)
[2022-09-19] MEDS: FOLIC ACID 1 MG TABLET PO SCH (09:40)
[2022-09-19] MEDS: APIXABAN 2.5 MG TABLET PO SCH (09:40)
[2022-09-19] MEDS: AURYXIA 210 MG PO SCH (09:44)
[2022-09-19] MEDS ORDERED: HEPARIN SODIUM,PORCINE 5,000 UNITS/ML VIAL MC PRN (10:45)
[2022-09-19 11:45] VITALS: BP_SYST 99
[2022-09-19] MEDS: ALLOPURINOL 300 MG TABLET (ZYLOPRIM) PO SCH (12:28)
[2022-09-19 12:46] VITALS: BP_SYST 102
--- NOTE | 2022-09-19 13:40 | NUR ---
Discharge Note Pt. is AAOx4, no signs of acute distress, Patient finished dialysis for today 1.9L out and is able to tolerate RA at 95%. Patient is very anxious to go home got an uber/lyft voucher from packing house laborer Babak and RN assisted patient to vehicle. Patient went home with his wheelchair and confirmed that his will be home to assist him out of the vehicle. Went over all discharge instructions and provided patient with wound care supplies to continue to dress is wound on his left AKA. Patient was given gauze, wound drain cleaner plumber, and wound gel. Went over all medications with the patient and gave him medication information and side effects for his new prescription, verified pharmacy with the patient. Patient verbalized his understanding of all discharge instructions and stated that all belongings are accounted for and being taken home with him. Patient also stated that he has made an appointment with his primary care provider next week.
== END 2022-09-19 13:40 | disposition home or self-care (01) | DRG 280 ==
LOC: SED 09:54 → STU 17:13 → SMU 23:46 → STU 09-18 00:22
PROVIDERS: ADMIT General Practice; ATTEND General Practice
PROC: 5A1D70Z Performance of Urinary Filtration, Intermittent, Less than 6 Hours Per Day (ICD-10-PCS; principal; 2022-09-16)
PROC: 5A1D70Z Performance of Urinary Filtration, Intermittent, Less than 6 Hours Per Day (ICD-10-PCS; 2022-09-17)
DX: I13.2 Hypertensive heart and chronic kidney disease with heart failure and with stage 5 chronic kidney disease, or end stage renal disease (principal); I50.43 Acute on chronic combined systolic (congestive) and diastolic (congestive) heart failure; I21.A1 Myocardial infarction type 2; N17.0 Acute kidney failure with tubular necrosis; N18.6 End stage renal disease; E44.0 Moderate protein-calorie malnutrition; I48.20 Chronic atrial fibrillation, unspecified; I42.0 Dilated cardiomyopathy; E78.00 Pure hypercholesterolemia, unspecified; E11.40 Type 2 diabetes mellitus with diabetic neuropathy, unspecified; D63.8 Anemia in other chronic diseases classified elsewhere; E87.5 Hyperkalemia; E11.22 Type 2 diabetes mellitus with diabetic chronic kidney disease; Z20.822 Contact with and (suspected) exposure to COVID-19; Z99.3 Dependence on wheelchair; Z91.041 Radiographic dye allergy status; Z79.899 Other long term (current) drug therapy; Z89.519 Acquired absence of unspecified leg below knee; Z99.2 Dependence on renal dialysis; Z91.199 Patient's noncompliance with other medical treatment and regimen due to unspecified reason; Z91.14 Patient's other noncompliance with medication regimen; Z89.612 Acquired absence of left leg above knee; Z89.611 Acquired absence of right leg above knee; Z87.891 Personal history of nicotine dependence; Z68.24 Body mass index [BMI] 24.0-24.9, adult
CPT/HCPCS: 36415; 71045; 80048; 80053; 83036; 83735; 83880; 84484; 85025; 90935; 90937; 94640; 94760; 99285; G0378; J1644; J2270; J2543; J7050; J7613